=== PATIENT | male | born 2000 | race Caucasian/White ===

== ENCOUNTER 2022-03-12 23:31 | Emergency (ER) | payer OTHER ==
[2022-03-12 23:34] VITALS: BP 129/81; PULSE 87; RESP 16; TEMP 99.4; BMI 23.0
[2022-03-13] MEDS ORDERED: ACETAMINOPHEN 500 MG TABLET (FP) PO ONE (00:30)
[2022-03-13] MEDS ORDERED: ACETAMINOPHEN 325 MG TABLET (FP) ONE (00:52)
[2022-03-13 01:31] LABS: BASO % 0.3 % (0-2.0); EOS % 0.3 % (0-4.5); HEMATOCRIT 43.3 % (35.4-49); HEMOGLOBIN 15.4 GM/dL (11.7-16.9); MCHC 35.5 g/dl (32.0-35.9); MEAN CELL VOLUME 84.5 fl (80-96); MONO % 8.6 % (3.8-10.2); NEUT % 62.8 % (42.8-82.8); PLATELET COUNT 202 10^3/uL (134-434); RBC 5.13 M/mm3 (4.00-5.60); RDW 13.1 % (11.9-15.9); WHITE BLOOD COUNT 6.7 K/mm3 (4.0-10.0)
== END 2022-03-13 01:17 ==
LOC: FER 23:31
DX: R07.89 Other chest pain (principal)
CPT/HCPCS: 36415; 71046-TC-FY; 85025; 93005; 99285-25